=== PATIENT | male | born 1985 | race Two or more races ===

== ENCOUNTER 2019-01-06 10:50 | Emergency (ER) | payer OTHER ==
[~2019-01-06] VITALS: Ht 180.3 cm; Wt 90.7 kg
[2019-01-06 11:14] VITALS: BP 141/77
[2019-01-06] MEDS: SODIUM CHLORIDE 0.9% 500 ML IV ONE (12:26)
[2019-01-06] MEDS: HYDROmorphone HCL 2 MG/ML VL IV ONE (12:26)
[2019-01-06] MEDS: PROMETHAZINE HCL 25 MG/ML 1ML IV ONE (12:26)
== END 2019-01-06 13:30 | disposition home or self-care (01) ==
LOC: ER 11:06
DX: M54.42 Lumbago with sciatica, left side (principal); M54.16 Radiculopathy, lumbar region; F41.9 Anxiety disorder, unspecified; X50.9XXA Other and unspecified overexertion or strenuous movements or postures, initial encounter; Y93.01 Activity, walking, marching and hiking; Y92.89 Other specified places as the place of occurrence of the external cause; Y99.8 Other external cause status
CPT/HCPCS: 72110; 96374; 96375; 99283; J1170; J2550; J7040